=== PATIENT | male | born 1985 | race Caucasian/White ===

== ENCOUNTER 2017-08-13 19:04 | Emergency (ER) | payer SELFPAY ==
[~2017-08-13] VITALS: Ht 175.3 cm; Wt 65.8 kg
[2017-08-13] MEDS ORDERED: TETANUS/DIPHTHERIA TOX ADULT 0.5 ML SYR IM ONE (20:00)
[2017-08-13] MEDS ORDERED: TETANUS/DIPHTHERIA TOX ADULT 0.5 ML SYR IM NR (21:00)
== END 2017-08-13 20:55 | disposition home or self-care (01) ==
LOC: ER 19:04
DX: S01.112A Laceration without foreign body of left eyelid and periocular area, initial encounter (principal); Y93.67 Activity, basketball; Y92.310 Basketball court as the place of occurrence of the external cause
CPT/HCPCS: 90714